=== PATIENT | male | born 1980 | race Caucasian/White ===

== ENCOUNTER 2017-04-10 20:03 | Emergency (ER) | payer OTHER ==
[~2017-04-10] VITALS: Ht 180.3 cm; Wt 88.3 kg
[~2017-04-10 20:03] MED LIST: ALLEGRA-D 241 TABLET PO; FLONASE16 G1 BOTH NARES; LEVAQUIN PO; LEVAQUIN500 MG PO; MOTRIN800 MG PO; MUCUS RELIEF600 M1 PO; NAPROSYN500 MG PO; NOHOMEMEDS
[2017-04-10 20:38] LABS: HEMATOCRIT 42.8 % (38.0-50.0); MCH 31.2 PG (29.0-34.0); MCHC 34.8 G/DL (30.0-36.0); MCV 89.7 FL (86-99); MEAN PLAT.VOLUME 9.4 uM^3 (9.0-12.4); PLATELET COUNT 328 K/uL (156-360); RBC DIS.WIDTH-CV 11.8 % (11.8-14.6); RBC DIS.WIDTH-SD 38.3 % (39-53); RED BLOOD COUNT 4.77 M/uL (4.00-5.50); WHITE BLOOD COUNT 10.6 K/uL (4.1-10.2)
[2017-04-10 20:51] LABS: CHLORIDE 106 mEq/L (99-109); SODIUM 141 mEq/L (136-147)
[2017-04-10 20:53] LABS: GLUCOSE 122 mg/dL (70-99)
[2017-04-10 20:54] LABS: ANION GAP 10 MEQ/L (2-14)
[2017-04-10 20:55] LABS: TOTAL BILIRUBIN 0.4 mg/dL (0.0-1.0)
[2017-04-10 20:57] LABS: ALKALINE PHOSPHATASE 104 IU/L (3-129); GFR ESTIMATE (CALCULATED) > 59 mL/min/
[2017-04-10 20:58] LABS: UREA NITROGEN (BUN) 11 mg/dL (9-23)
[2017-04-10 21:02] LABS: ADD MIUA? NO; BILIRUBIN NEGATIVE; BLOOD NEGATIVE; COLOR STRAW ((YELLOW)); GLUCOSE (STRIP) NEGATIVE; KETONES NEGATIVE; LEUKOCYTES NEGATIVE; NITRITE NEGATIVE; PROTEIN (STRIP) NEGATIVE; SPECIFIC GRAVITY 1.014 (1.000-1.030); UCUL ADDED? NO; UROBILINOGEN 0.2 MG/DL (0.2-1.0)
[2017-04-10 21:57] LABS: LIPASE 14 U/L (1.0-51.0)
[2017-04-11] MEDS ORDERED: FLEXERIL10 MG PO (00:29)
[2017-04-11] MEDS ORDERED: ULTRAM50 MG PO (00:29)
[2017-04-11 01:05] VITALS: BP 121/78
== END 2017-04-11 01:06 | disposition home or self-care (01) ==
LOC: EME 20:03
DX: R10.11 Right upper quadrant pain (principal); Z87.891 Personal history of nicotine dependence
CPT/HCPCS: 74022; 76705; 80053; 81003; 83690; 85027; 99281; 99283